=== PATIENT | female | born 1935 | race Caucasian/White ===

== ENCOUNTER 2019-10-25 10:26 | Inpatient (IN) ==
--- NOTE | 2019-10-06 14:15 | ANES ---
Anesthesia Pre Procedure Eval HOME MEDICATIONS Aspirin [Aspirin Enteric Coated] 81 mg PO DAILY 05/13/16 [Last Taken Unknown] Pravastatin Sodium [Pravachol] 20 mg PO DAILY 05/13/16 [Last Taken 05/12/16] amlodipine 5 mg tablet 5 mg PO DAILY 11/17/18 [Last Taken Unknown] hydrochlorothiazide 12.5 mg tablet 12.5 mg PO DAILY 11/17/18 [Last Taken Unkn own] cholecalciferol (vitamin D3) 3,000 unit tablet 3,000 unit PO DAILY #1 tab 03/22/19 [Last Taken Unknown] lisinopril 10 mg tablet 20 mg PO DAILY tab 09/29/19 [Last Taken Unknown] Allergies/Adverse Reactions: Allergies Allergy/AdvReac Type Severity Reaction Status Date / Time codeine Allergy Intermediate hives, Verified 10/06/19 08:41 sweaty Penicillins Allergy Intermediate rash; Verified 10/06/19 08:41 vervous - Planned Procedure Planned Procedure: L Arthroplasty Total Knee Medication List Reviewed:: Yes Allergies Verified: Yes Medical History (Last Reviewed 10/06/19 @ 14:12 by Rayo Pagan CRNA) Osteoarthrosis (Chronic) Onset Date: Unknown Obesity (Chronic) Onset Date: Unknown Essential hypertension (Chronic) Onset Date: ~07/10/16 Hyperlipidemia (Chronic) Onset Date: Unknown History of DVT (deep vein thrombosis) Onset Date: ~1989 left leg Surgical History (Last Reviewed 10/06/19 @ 14:12 by Rayo Pagan CRNA) H/O excision of epidermal inclusion cyst Onset Date: ~08/27/06 Dr. Ryan-left nasal canthus History of D&C Onset Date: ~1981 History of colonoscopy Onset Date: ~03/11/06 History of hysterectomy Onset Date: Unknown History of laparoscopic cholecystectomy Onset Date: ~05/13/16 Dr. Alxe Hx of shoulder surgery Onset Date: ~1995 right Family History (Last Reviewed 10/06/19 @ 14:12 by Rayo Pagan CRNA) Father , age 80 CVA (cerebral vascular accident) Mother , age 90 Cancer cancer unknown - Family Anesthesia History Family History:: no untoward family reactions to anesthesia, no familial bleeding tendencies, no family history of clotting disorders, no family history of premature - Airway/Neck/Teeth Within Normal Limits:: Yes Teeth Condition: intact Mallampatti Score: 3 Thyromental (T-M) distance: > 6 cm Mandibulo Hyoid distance: > 3 cm - Respiratory Smoking Status: Never smoker Discussed smoking cessation including day of surgery: No Sleep Apnea currently treated: No Sleep Apnea by current assessment: No Discussed Risks/Treatment of DARLIN: No - Cardiovascular Tolerate Activity: Good Heart Sounds: S1 & S2, Regular - Anesthesia Assessment and Plan ASA Class: PS, II Anesthesia Type Plan: Block - Bilateral ultrasound guided adductor canal nerve block for postop analgesia, Spinal
[~2019-10-25 10:26] MED LIST: MORPHINE SULFATE 15 MG TABLET.SA PO PRN; ROPIVACAINE HCL/PF 100 MG, EPINEPHrine 0.2 MG, KETOROLAC TROMETHAMINE 30 MG in NORMAL S... IJ PRN; TRANEXAMIC ACID 1,000 MG in NORMAL SALINE 100 ML IV PRN; ceFAZolin SODIUM 1 GM VIAL IV PRN
[2019-10-25] MEDS ORDERED: LIDOCAINE HCL 20 ML VIAL ONE (10:53)
[2019-10-25] MEDS ORDERED: ONDANSETRON HCL/PF 2 MG/ML VIAL ONE (10:54)
[2019-10-25] MEDS ORDERED: PROPOFOL VIAL IV ONE (10:54)
[2019-10-25] MEDS ORDERED: BUPIVACAINE HCL/EPINEPHRINE 50 ML VIAL ONE (10:54)
[2019-10-25] MEDS ORDERED: fentaNYL CITRATE/PF 50 MCG/ML AMPUL ONE (10:54)
[2019-10-25] MEDS: RINGER'S SOLUTION,LACTATED 1,000 ML IV PRN ×2 (11:22→12:40)
[2019-10-25] MEDS ORDERED: MAG HYDROX/ALUMINUM HYD/SIMETH 30 ML UDC PO PRN (13:33)
[2019-10-25] MEDS ORDERED: ACETAMINOPHEN 500 MG TABLET PO PRN (13:33)
[2019-10-25] MEDS ORDERED: MAGNESIUM HYDROXIDE 30 ML UDC PO PRN (13:33)
[2019-10-25] MEDS ORDERED: MORPHINE SULFATE 4 MG/ML SYRG IV PRN (13:33)
[2019-10-25] MEDS ORDERED: diphenhydrAMINE HCL 50 MG/ML VIAL IV PRN (13:33)
[2019-10-25] MEDS ORDERED: ZOLPIDEM TARTRATE 5 MG TABLET PO PRN (13:33)
--- NOTE | 2019-10-25 13:37 | OR ---
Operative Report - Dictated Report Narrative: Date: 10/25/2019 Preoperative diagnosis: Left knee degenerative joint disease. Postoperative diagnosis: Left knee degenerative joint disease. Procedure: Left total knee arthroplasty. Surgeon: Jj Carmichael M.D. Linoleum Layer: Lance Anderson PA-C (provided and essential set of skilled, educated hands that assisted with transfer, positioning, prepping, draping, manipulation, retraction, placement of jigs, injection, insertion of implants, irrigation, closure wounds, and dressings all of which could not be performed by the available surgical crew) Anesthesia: Spinal with regional block and local periarticular joint injection. Complications: None Specimens: Bone. Estimated blood loss: Minimal. Tourniquet time: 80 Minutes at 325 millimeters of mercury. Retained implants: Depuy Attune size 6 narrow left lugged cemented posterior stabilized femoral component. Size 5 fixed-bearing cemented tibial platform. 6 by 6 millimeter posterior stabilized cross-linked tibial insert. 38 millimeter medialized patella button. Indications: Mrs. Browning is a 84-year-old female who has had longstanding left knee pain and arthrosis. This patient was followed in my clinic for period of time with significant complaints of left knee pain consistent with arthritic changes. She had failed conservative measures including, but not limited to, activity modification, passage of time, medications, and other conservative measures. Patient wished to proceed with surgical treatment. The risks, benefits, and alternatives were discussed in clinic. The risks of , blood clots, bleeding, infection, nerve/tendon blood vessel/ injury, malposition of components, intraoperative fracture, postoperative limited range of motion, persistent pain, failure of components, and need for additional procedures. Patient wished to proceed consent was obtained after answering all questions. Procedure: After marking the correct extremity on the floor, the patient was taken to the operating room. A timeout was performed. IV antibiotics consisting of Ancef were administered prior to the procedure. A regional followed by spinal anesthetic was induced by anesthesia, per my request, on the operative table with all bony prominences well-padded. Yarbrough catheter was placed, and a bump was placed under the operative side buttock. SCDs and MELANY hose were utilized on the nonoperative leg. A well-padded tourniquet was applied to the operative thigh. The operative leg was then pre-scrubbed with alcohol, prepped, and draped in a standard sterile fashion. After exsanguinating the extremity with an Esmarch bandage, the tourniquet was inflated. After marking out the anterior knee for standard incision centered over the patella, the skin was incised and dissected down to the joint retinaculum. The joint retinaculum was marked out as well as the horizontal axis of the patella, and a standard medial parapatellar arthrotomy was then made. The most proximal aspect of the quadriceps tendon and the patella tendon insertion were protected from release. A partial synovectomy was performed as well as a resection of the infrapatellar fat pad. The distal femoral fat pad proximal to the trochlea was also resected using cautery. The soft tissues were elevated off the medial as pect of the proximal tibia using a Mccauley elevator ensuring that we did not transect the medial collateral ligament. Upon initial evaluation range of motion was approximately 5 degrees to 120 degrees of flexion. There were signs of advanced arthrosis in the medial and patellofemoral greater than lateral joint spaces. There were large marginal osteophytes which were removed with a rongeur. The knee was hyperflexed and the patella was tucked laterally. Protecting the surrounding soft tissues with Homans, an entry drill was placed down the femoral canal using Whitesides line for guidance into the entry point. The intramedullary femoral alignment brandy was utilized in order to cut the distal femur in 5 degrees of valgus resecting 10 millimeters of bone. Next the distal femur was sized to a size 6. A posterior referencing guide was utilized to place the distal femoral cutting block in 3 degrees of external rotation. This was pinned into place. The rotation was confirmed both visually and based on anatomic landmarks. The 4 in 1 cutting jig of the appropriate size was utilized in order to make all bony cuts. The angle wing was used to ensure no notching. Retractors were utilized in order to protect surrounding soft tissues. This cut did not result in any excessive notching. We then cut the box centered over the distal femur. This allowed for resection of the anterior and posterior cruciate ligaments. I then turned my attention to the preparation of the tibia. Using an extra medullary tibial alignment brandy, 5 millimeters of bone was resected off the medial articular surface. This was made perpendicular to the mechanical axis of the joint with the alignment brandy centered over the ankle mortise. The alignment brandy was checked and was noted to be parallel to the mec hanical axis, centered over the medial one third of the tibial tubercle, paralleling the anterior surface of the tibia. We then turned our attention to the remaining meniscus and soft tissues. These were removed while protecting the surrounding ligaments and soft tissues. The marginal osteophytes off the anterior, posterior, medial, lateral aspects of the femur and tibia were removed. The tibia was sized out to a size 5. Next the tibia was drilled and punched in an externally rotated position. Next the trial femur and a series of tibial inserts were utilized in order to allow for full extension and maximal flexion. It was found that a 6 millimeter insert gave the best range of motion and stability at multiple flexion points as well as at full extension there was less than 2 mm of gapping both medially and laterally. There is minimal anterior translation with the knee at 90 degrees of flexion and no signs of being able to dislocate the knee. The patella was then prepared. The initial thickness was 23 millimeters. This was reamed down to 13 millimeters parallel to the anterior surface of the patella. It was sized out to a size 38 medialized patella button. This was then drilled and trialed. Without any medial restraint the patella tracked appropriately and did not sublux or dislocate. At this point, it was felt these were the appropriate sized implants, and all trials were removed. The standard periarticular joint injection consisting of ropivacaine, Toradol, and epinephrine were injected into the periarticular joint tissues. The bony surfaces were thoroughly irrigated with a pulsatile-suction saline irrigation device. A bone plug from the prior resected anterior chamfer cut was placed into the drill hole at the distal femur. The bony surfaces were then dried in preparation for placement of the implants. The cement was vacuum mixed per the senior erp consultant's instructions. The cement was placed on the dry bony surfaces and posterior aspect of the implants. The implants were impacted into place, removing all extruded cement. At this point anesthesia administered tranexamic acid per protocol intravenously. The knee was placed in extension with axial loading with the trial insert while the cement cured. Once the cement cured, all remaining extruded cement was removed. The knee was placed through a range of motion with the trial insert to ensure appropriate range of motion and stability. Final range of motion was approximately 0 to 120 degrees. The knee was again thoroughly irrigated with pulsatile saline lavage. The final polyethylene insert was then impacted into place ensuring no retained soft tissues. The remaining periarticular joint injection was injected. A medium Hemovac drain was placed exiting superior laterally. The knee was then placed over a triangle and the arthrotomy was closed with interrupted #1 Vicryl after thoroughly irrigating the joint. The deep and subcutaneous tissues were closed with interrupted 0 and 3-0 Vicryl respectively. Skin was closed with a running subcutaneous 3-0 Monocryl and Prineo Dermabond dressing. 4 x 4's, Sof-Rol, and a full leg Buster wrap were applied. All sponge, needle, blade, and instrument counts were correct prior to closing the wounds. Postoperative condition: The patient was awoken and transferred to the postanesthesia care unit in stable condition. Plan is to be admitted to the inpatient medical/surgical floor postoperatively for 24 hours of IV antibiotics, physical therapy, occupational therapy, and medical comanagement. Patient will be weightbearing as tolerated with range of motion as tolerated. DVT prophylaxis will be with SCDs, MELANY hose, and pharmacological anticoagulation. Anticipated hospital stay is approximately 1-3 days.
--- NOTE | 2019-10-25 13:56 | ANES ---
Post Anesthesia Discharge - Transfer of Care Transfer of Care handoff given to nurse: Yes - Discharge from PACU Discharge from PACU when meets criteria: Yes - Discharge to ASU Discharge to ASU-no complications/pt stable: Yes
--- NOTE | 2019-10-25 13:58 | ANES ---
Anesthesia Procedure Note Procedure Note: ANESTHESIA PROCEDURE NOTE Date of Procedure: 10/25/2019. Time of procedure: 1140. Performed by: Rayo Pagan CRNA Senior Production Supervisor: None. Preprocedure diagnosis: Left knee degenerative joint disease. Post procedure diagnosis: Same. Procedure: Left ultrasound guided adductor canal block for postoperative analgesia. Indications: The patient is a 84-year-old female, requesting left ultrasound- guided adductor canal block for postoperative analgesia related to left total knee arthroplasty. Findings: See below. Details of the procedure: The tissue over the intended target site was cleansed with ChloraPrepand draped in a sterile fashion. 2 ml Lidocaine 1 % was infiltrated to the skin and subcutaneous tissue at the intended target site. Under sterile technique and ultrasound guidance a 20-gauge block needle was inserted through the left sartorius muscle to the saphenous nerve just anterior and medial to the superficial femoral artery and vein. 15 mL's of 0.5% bupivacaine was injected after negative aspiration for blood. Needle tip and spread of local anesthetic surrounding the saphenous nerve was observed throughout the injection with real time ultrasound visualization. The needle was then removed intact. No complications were noted. The images were retained in the Hospital medical database. EBL: Minimal. Fluids: N/A. Specimen: N/A. Post procedure condition: The patient tolerated the procedure well. No complications were noted. Thank you for this consultation. Rayo Pagan CRNA
--- NOTE | 2019-10-25 14:01 | ANES ---
Post Anesthesia Assessment - Vital Signs Vitals: Last Vital Signs Temp 36.7 C 10/25/19 10:40 Pulse 74 10/25/19 10:40 Resp 16 10/25/19 10:40 BP 170/78 H 10/25/19 10:40 Pulse Ox 100 10/25/19 10:40 Airway Patency: Normal - Mental Status Level Of Consciousness: Awake - Pain Level Pain Score: 0 - N/V Assessment Nausea/Vomiting Presence: None Dehydration:: No
[2019-10-25] MEDS: DEXTROSE 5%-LACTATED RINGERS 1,000 ML IV PRN ×2 (14:32→22:30)
[2019-10-25] MEDS: ceFAZolin SODIUM 1 GM in DEXTROSE 5 % IN WATER 50 ML IV SCH ×4 (14:33→21:01)
[2019-10-25] MEDS: KETOROLAC TROMETHAMINE 15 MG/ML VIAL IV SCH ×2 (14:35→20:18)
[2019-10-25] MEDS: ONDANSETRON HCL/PF 2 MG/ML VIAL IV PRN ×2 (14:47→20:51)
[2019-10-25] MEDS: oxyCODONE HCL/ACETAMINOPHEN 1 TAB TABLET PO PRN ×2 (17:52→22:21)
[2019-10-25] MEDS: SENNOSIDES/DOCUSATE SODIUM 1 TAB TABLET PO SCH (20:53)
[2019-10-25] MEDS: SIMVASTATIN 10 MG TABLET PO SCH (20:56)
[2019-10-26] MEDS: KETOROLAC TROMETHAMINE 15 MG/ML VIAL IV SCH ×4 (01:32→20:02)
[2019-10-26] MEDS: ceFAZolin SODIUM 1 GM in DEXTROSE 5 % IN WATER 50 ML IV SCH ×2 (03:20)
[2019-10-26 06:55] LABS: Hematocrit 43.5 % (37.0-47.0); Hemoglobin 13.8 gm/dL (12.5-16.0); Mean Cell Volume 88.8 fl (78-100); Mean Corpuscular Hemoglobin 28.2 pg (27-31); Mean Corpuscular Hgb Conc 31.7 g/dl (32-36); Mean Platelet Volume 10.4 fl (8-12.5); Platelet Count 171 K/mm3 (150-450); Red Cell Distribution Width 14.1 % (11.5-14.0); White Blood Count 6.9 K/mm3 (4.0-10.5)
[2019-10-26 07:18] LABS: Anion Gap 10.4 mmol/L (6.8-13.8); BUN/Creatinine Ratio 17.1 (9.0-21.6); Calcium * 8.5 mg/dL (7.9-10.9); Carbon Dioxide 28.4 mmol/L (24-32.6); Estimated Creat Clear 48.3; Potassium 3.8 mmol/L (3.4-4.6)
[2019-10-26] MEDS: oxyCODONE HCL/ACETAMINOPHEN 1 TAB TABLET PO PRN ×4 (08:14→18:54)
[2019-10-26] MEDS: HYDROCHLOROTHIAZIDE 12.5 MG CAPSULE PO SCH (08:16)
[2019-10-26] MEDS: CHOLECALCIFEROL 1,000 UNIT CAPSULE PO SCH (08:16)
[2019-10-26] MEDS: LISINOPRIL 20 MG TABLET PO SCH (08:16)
[2019-10-26] MEDS: amLODIPine BESYLATE 5 MG TABLET PO SCH (08:17)
--- NOTE | 2019-10-26 08:23 | PN ---
Subjective - Date and Time Seen Date: 10/26/19 Time: 08:16 Subjective Narrative: Reports pain increased in the last hour. Had been pain free prior to that. No nausea. No chest pain or SOB. No other complaints at this time. Objective Objective Narrative: Bandages C/D/I. N/V intact LLE. 5/5 PF/DF ankle. Calf supple. Drain intact. - Vitals Vitals: Last Vital Signs Temp 36.2 C 10/26/19 07:45 Pulse 61 10/26/19 07:45 Resp 13 10/26/19 07:45 BP 152/69 H 10/26/19 07:45 Pulse Ox 98 10/26/19 07:45 - Abnormal Lab Findings Abnormal Lab Findings: Abnormal Lab Results 10/26/19 Range/Units 06:51 MCHC 31.7 L (32-36) g/dl RDW 14.1 H (11.5-14.0) % - Exam Constitutional: Present: Alert, Oriented x3, Cooperative, Mild distress Cauti Physician Documentation - Urinary Catheter Management Urethral (Yarbrough) Date of Insertion: 10/25/19 Time of Insertion: 12:05 Date of Removal: 10/26/19 Time of Removal: 05:30 Assessment/Plan - Problems/Diagnosis (1) Status post left knee replacement Problem: Acute Narrative: With increase in pain will add in MS Contin. Labs look fine. Patient has been bradycardic and her medical is going to check in on patient. PT to see patient this am. Anticoagulation. (2) Osteoarthritis of knee Problem: Chronic Qualifiers: (3) Obesity Problem: Chronic Qualifiers: (4) Essential hypertension Problem: Chronic (5) History of DVT (deep vein thrombosis) Problem: Chronic (6) Hyperlipidemia Problem: Chronic Qualifiers: (7) Bradycardia Problem: Acute Narrative: Medical to evaluate.
[2019-10-26] MEDS: MORPHINE SULFATE 15 MG TABLET.SA PO SCH ×2 (09:21→20:04)
[2019-10-26] MEDS ORDERED: MORPHINE SULFATE 2 MG/ML DISP.SYRIN IV PRN (10:00)
[2019-10-26] MEDS: ENOXAPARIN SODIUM 40 MG/0.4 ML SYRG SC SCH (12:23)
[2019-10-26] MEDS: SENNOSIDES/DOCUSATE SODIUM 1 TAB TABLET PO SCH (20:04)
[2019-10-26] MEDS: SIMVASTATIN 10 MG TABLET PO SCH (20:04)
[2019-10-27] MEDS: KETOROLAC TROMETHAMINE 15 MG/ML VIAL IV SCH ×2 (03:41→08:21)
[2019-10-27] MEDS: oxyCODONE HCL/ACETAMINOPHEN 1 TAB TABLET PO PRN ×4 (03:56→18:29)
[2019-10-27] MEDS: CHOLECALCIFEROL 1,000 UNIT CAPSULE PO SCH (08:21)
[2019-10-27] MEDS: HYDROCHLOROTHIAZIDE 12.5 MG CAPSULE PO SCH (08:21)
[2019-10-27] MEDS: LISINOPRIL 20 MG TABLET PO SCH (08:22)
[2019-10-27] MEDS: amLODIPine BESYLATE 5 MG TABLET PO SCH (08:22)
[2019-10-27] MEDS: MORPHINE SULFATE 15 MG TABLET.SA PO SCH ×2 (08:24→20:19)
--- NOTE | 2019-10-27 10:38 | PN ---
Subjective - Date and Time Seen Date: 10/27/19 Time: 10:36 Subjective Narrative: Subjective: Reports improved pain control. Was able to walk in the higuera with therapy. Pain is well-controlled. Voiding without any complications. Tolerating by mouth intake. Denies any nausea or vomiting. Denies calf pain. Slept well. Physical exam: Alert and oriented to person, place and time Left lower extremity: Palpable dorsalis pedis pulse. Sensation grossly intact to light touch. Dressings clean and dry. Able to flex and extend ankle and toes. No excessive drainage. Calf and thigh are soft and nontender. Assessment: Postop day 2 status post left total knee arthroplasty. Plan: Due to the need for pain control, post-operative limited mobility, protection of the surgical site and joint, monitoring of the wound, and the management of chronic medical conditions, she requires continued inpatient care. Continue with physical and occupational therapy weightbearing as tolerated. Continue with anticoagulation. Pain control with goal to rely on oral medications. Continue bowel regimen. Will need 6 weeks with walker or assitive device to protect joint while ambulating during the recovery process. Discharge planning -shelter facility tomorrow as long as it is okay with medicine. Continue to monitor her blood pressure and pulse per internal medicine recommendations. Objective - Vitals Vitals: Last Vital Signs Temp 36.7 C 10/27/19 06:56 Pulse 61 10/27/19 08:22 Resp 18 10/27/19 06:56 BP 139/54 10/27/19 08:22 Pulse Ox 96 10/27/19 06:56 Cauti Physician Documentation - Urinary Catheter Management Urethral (Yarbrough) Date of Insertion: 10/25/19 Time of Insertion: 12:05 Date of Removal: 10/26/19 Time of Removal: 05:30 Assessment/Plan - Problems/Diagnosis (1) Bradycardia Problem: Acute (2) Status post left knee replacement Problem: Acute (3) Essential hypertension Problem: Chronic (4) Hyperlipidemia Problem: Chronic Qualifiers:
[2019-10-27] MEDS: ENOXAPARIN SODIUM 40 MG/0.4 ML SYRG SC SCH (12:51)
[2019-10-27] MEDS: SIMVASTATIN 10 MG TABLET PO SCH (20:20)
[2019-10-27] MEDS: SENNOSIDES/DOCUSATE SODIUM 1 TAB TABLET PO SCH (20:20)
[2019-10-28] MEDS: oxyCODONE HCL/ACETAMINOPHEN 1 TAB TABLET PO PRN ×2 (02:40→10:34)
--- NOTE | 2019-10-28 07:54 | DS ---
(1) Bradycardia Problem: Acute (2) Status post left knee replacement Problem: Acute (3) Essential hypertension Problem: Chronic (4) Hyperlipidemia Problem: Chronic Qualifiers: Date of Discharge:: 10/28/19 Hospital Course: Mrs. Browning was admitted to the floor after undergoing left total knee arthroplasty. Tolerated this well. Was admitted to the floor postoperatively for 24 hours of IV antibiotics, pain control, medical comanagement, and occupational and physical therapy. OT and PT were consulted to assist with activities of daily living and ambulation. Was made weightbearing as tolerated with range of motion as tolerated. Pain was initially controlled with IV regimen. This was transitioned to oral once tolerating a by mouth intake. Was resumed on home diet and medications. Had a Yarbrough catheter inserted and the operating room which was discontinued on postoperative day 1. A drain was placed intraoperatively into the knee which was discontinued on postoperative day 1. Lovenox SCD and MELANY hose were utilized for DVT prophylaxis. She did have an episode of bradycardia which resolved and was montitored during the stay with telemetry. Her PCP was consulted as well to help manage this and her medical issues. Labs were obtained which showed a final hemoglobin of 13.8 grams. BMP was reviewed and was stable. Physical examination throughout the hospital course showed an extremity that had sensation that was intact to light touch, palpable pulses, a benign wound, motor intact to the toes, ankle, and knee. Knee range of motion was approximately 5 degrees to 60 degrees. She was slow to progress with PT and had not met her home goals and thus it was felt it would be best for her to continue PT at a detention facility. Instructions: Continue with weightbearing as tolerated and range of motion as tolerated. It is okay to shower and get the wound wet as long as there is no drainage from the wound. Do not bathe or soak the wound. If there is any drainage from the wound keep the wound clean and dry and cover with dry gauze and tape. Change every 2- 3 days as needed if there is any drainage. Cover wound while showering if there is any drainage. Continue with physical therapy. Resume home diet. Report any fever over 101.5 Fahrenheit, uncontrolled pain, increased drainage, foul odor of drainage, new or increased calf pain or shortness of breath, or any other significant complaints. A 325mg dialy aspirin will be started after finishing anticoagulation if not allergic. Continue with MELANY hose on the operative ex tremity until instructed otherwise. No driving until instructed otherwise. Follow up in approximately 2-3 weeks. Procedures Performed: see notes below List Procedures: left total knee arthroplasty Results and Findings: Lab Pending Results 10/26/19 06:51: WBC 6.9, RBC 4.90, Hgb 13.8, Hct 43.5, MCV 88.8, MCH 28.2, MCHC 31.7 L, RDW 14.1 H, Plt Count 171, MPV 10.4 10/26/19 06:51: Sodium 138, Plasma Sodium 138, Potassium 3.8, Chloride 103, Carbon Dioxide 28.4, Anion Gap 10.4, BUN 14, Creatinine 0.82, Est GFR (Non-Af Amer) 71, BUN/Creatinine Ratio 17.1, Random Glucose 99, Calcium 8.5 Disposition: swing bed (SNF) Condition: Good Discharge Activity: Activity as tolerated, Weight bearing Discharge Diet: General/regular food Usp Therapy: Physical Therapy, Occupation Therapy Referrals: Jj Carmichael MD [Staff Physician] - 11/16/19 10:30 am Problem Oriented Discharge Instructions to Patient/Family: Total Knee Replacement, Care After, [id number] Additional Patient Instructions (free text): Discharging to [facility] Swing Bed unit, SNF. For PT and OT to evaluate and treat. Follow up Orthopedic office appointment on Friday at 10:30a.m. Complete Home Medications List: Complete Home Medication List: cholecalciferol (vitamin D3) 3,000 unit tablet 3,000 unit PO DAILY #1 tab 03/22/19 amlodipine 5 mg tablet 5 mg PO DAILY #90 tab 10/18/19 hydrochlorothiazide 12.5 mg tablet 12.5 mg PO DAILY #90 tab 10/18/19 lisinopril 20 mg tablet 20 mg PO DAILY #90 tab 10/18/19 pravastatin 20 mg tablet 20 mg PO DAILY #90 tab 10/25/19 Enoxaparin Sodium [Lovenox] 40 mg SC Q24H #0 disp.syrin 10/28/19 Morphine Sulfate [Ms Contin] 15 mg PO Q12H tablet.sa 10/28/19 Sennosides/Docusate Sodium [Senokot-S] 2 tab PO HS tab 10/28/19 oxyCODONE HCL/ACETAMINOPHEN [Percocet 5 MG/325 MG] 2 tab PO Q4H PRN tab 10/28/19
[2019-10-28] MEDS: HYDROCHLOROTHIAZIDE 12.5 MG CAPSULE PO SCH (08:15)
[2019-10-28] MEDS: MORPHINE SULFATE 15 MG TABLET.SA PO SCH (08:15)
[2019-10-28] MEDS: CHOLECALCIFEROL 1,000 UNIT CAPSULE PO SCH (08:15)
[2019-10-28] MEDS: LISINOPRIL 20 MG TABLET PO SCH (08:16)
[2019-10-28] MEDS: amLODIPine BESYLATE 5 MG TABLET PO SCH (08:16)
[2019-10-28 10:56] VITALS: BP 117/52
== END 2019-10-28 10:45 | disposition swing bed (61) | DRG 470 ==
LOC: MS 10:26 → EDSTATUS 12:00
PROVIDERS: ADMIT Orthopaedic Surgery; ATTEND Orthopaedic Surgery
DX: E78.5 Hyperlipidemia, unspecified; I97.191 Other postprocedural cardiac functional disturbances following other surgery; I10 Essential (primary) hypertension; Z86.718 Personal history of other venous thrombosis and embolism; E66.9 Obesity, unspecified; Z68.35 Body mass index [BMI] 35.0-35.9, adult; R00.1 Bradycardia, unspecified; M17.12 Unilateral primary osteoarthritis, left knee
CPT/HCPCS: 36415; 73560; 80048; 85027; 93005; 97110; 97116; 97161; 97165; 97530; 97535; J2405